=== PATIENT | male | born 1960 | race Caucasian/White ===

== ENCOUNTER → 2018-10-10 | Day surgery (SDC) | payer BC | LOC: MSO 07:20 | DX: Z12.11 Encounter for screening for malignant neoplasm of colon (principal); Z86.010 Personal history of colon polyps; M06.9 Rheumatoid arthritis, unspecified | CPT/HCPCS: 00812; J2704; J3010; J7120 ==

== ENCOUNTER → 2023-02-11 | Outpatient (CLI) | payer OTHER | LOC: RAD 16:48 | DX: S62.304A Unspecified fracture of fourth metacarpal bone, right hand, initial encounter for closed fracture (principal); X58.XXXA Exposure to other specified factors, initial encounter ==